=== PATIENT | male | born 1980 | race Caucasian/White ===

== ENCOUNTER 2022-01-24 09:14 | Outpatient (CLI) | payer OTHER ==
[~2022-01-24] VITALS: Ht 175.3 cm; Wt 116.1 kg
== END 2022-01-24 16:29 | disposition home or self-care (01) ==
LOC: EDSEX 09:14 → LAB 09:14
PROVIDERS: ATTEND Orthopaedic Surgery
DX: Z76.89 Persons encountering health services in other specified circumstances (principal); I10 Essential (primary) hypertension; I49.9 Cardiac arrhythmia, unspecified; D64.9 Anemia, unspecified; E88.9 Metabolic disorder, unspecified; D68.8 Other specified coagulation defects; N39.0 Urinary tract infection, site not specified; A49.02 Methicillin resistant Staphylococcus aureus infection, unspecified site; E11.9 Type 2 diabetes mellitus without complications

== ENCOUNTER 2022-01-31 07:58 | Day surgery (SDC) | payer OTHER | END 2022-01-31 15:45 | disposition home or self-care (01) | LOC: CIR.AMB 07:58 | PROVIDERS: ATTEND Orthopaedic Surgery | DX: M23.251 Derangement of posterior horn of lateral meniscus due to old tear or injury, right knee (principal); M17.11 Unilateral primary osteoarthritis, right knee; F12.90 Cannabis use, unspecified, uncomplicated; Z87.891 Personal history of nicotine dependence; K76.0 Fatty (change of) liver, not elsewhere classified; E66.9 Obesity, unspecified ==